=== PATIENT | male | born 1970 | race Caucasian/White ===

== ENCOUNTER 2017-05-22 21:47 | Emergency (ER) | payer OTHER ==
[2017-05-22 21:52] VITALS: RESP 16; O2SAT 95
--- NOTE | 2017-05-22 22:00 | EDPHY ---
H & P Stated Complaint: L upper leg pain and swelling since tuesday Time Seen by Provider: 05/22/17 21:50 HPI/ROS: HPI CHIEF COMPLAINT: Left leg swelling and pain HISTORY OF PRESENT ILLNESS: Patient very pleasant 47-year-old male, is otherwise healthy without any significant medical history does have remote history of a DVT in his leg after he got hit in the leg with a puck. 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 He often gets aches and pains in his legs and bruising. Since Tuesday has been complaining of some upper inner thigh left leg discomfort. He 1st just blew it off is possibly an injury musculoskeletal nature from playing hockey however the pain is persisted. He noticed his left leg is a little bit more swollen than normal. He does state at times he has leg does get swollen. He denies any chest pain or shortness of breath. Denies pleuritic pain. Patient's main complaint is left upper thigh pain. Deep in his thigh. Past Medical History: No significant medical history remote history of DVT after leg trauma Past Surgical History: Denies surgical history Social History: Denies drugs alcohol tobacco Family History: Denies significant family history ROS REVIEW OF SYSTEMS: A comprehensive 10 point review of systems is otherwise negative aside from elements mentioned in the history of present illness. Exam Constitutional appears well nontoxic no acute distress, triage nursing summary reviewed, vital signs reviewed, awake/alert. Eyes normal conjunctivae and sclera, EOMI, PERRLA. HENT normal inspection, atraumatic, moist mucus membranes, no epistaxis, neck supple/ no meningismus, no raccoon eyes. Respiratory clear to auscultation bilaterally, normal breath sounds, no respiratory distress, no wheezing. Cardiovascular rate normal, regular rhythm, no murmur, no edema, distal pulses normal. Gastrointestinal soft, non-tender, no rebound, no guarding, normal bowel sounds, no distension, no pulsatile mass. Genitourinary no CVA tenderness. Musculoskeletal left lower extremity: Trace swelling 1+, I do not appreciate a significant mass on exam or significant trauma. There is ecchymosis throughout his lower extremities bilaterally. He states from ice hockey. Distally neurovascular intact good pulse. Good cap refill. no midline vertebral tenderness, full range of motion, no calf swelling, no tenderness of extremities , no meningismus, good pulses, neurovascularly intact. Skin pink, warm, & dry, no rash, skin atraumatic. Neurologic awake, alert and oriented x 3, AAOx3, moves all 4 extremities equally, motor intact, sensory intact, CN II-XII intact, normal cerebellar, normal vision, normal speech. Psychiatric normal mood/affect. Heme/Lymph/Immune no lymphadenopathy. Differential Diagnosis: Includes but is not limited to in a particular order musculoskeletal injury, groin pull, DVT Medical Decision Making: Plan for this patient ultrasound Doppler of the left lower extremity rule out DVT. Re-evaluation: Ultrasound of the left lower extremity shows DVT. DVT present from the femoral vein to the popliteal vein. Does not go below the knee. 2310: Had a lengthy discussion with the patient about treatment options for an isolated left leg DVT. He has no chest pain or shortness of breath. Vital signs are stable. No hypoxia. No fever. His pain is very tolerable. We discussed treatment options in terms of warfarin or another novel agent like Xarelto the patient would prefer to be started on Xarelto so that he does not have to have INR checks. He does understand that Coumadin is easy to reverse in the setting of trauma bleeding. He understands Xarelto as much harder to reverse and there is not a definitive treatment for reversal at this time. Patient understands the risk of taking Xarelto. He understands that he would like to take this medications that have Coumadin. Additionally the patient understands he needs to follow up with his primary care doctor this week. Will be started on Xarelto 1st dose given in the emergency room 15 mg. Prescription given for 15 mg p.o. Twice daily x3 weeks. And then will need further Xarelto in conjunction with his primary care doctor. He understands return precautions he understands he has chest pain, shortness of breath, hemoptysis, pleuritic pain, not feeling well or shortness of breath or worsening leg swelling or leg pain he should return emergency room. 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 I recommend that he does not play ice hockey why he has a large clot his left leg, additionally recommend he does not play ice hockey while on Xarelto. Source: Patient - Personal History Current Tetanus/Diphtheria Vaccine: Yes - Medical/Surgical History Hx Asthma: No Hx Chronic Respiratory Disease: No Hx Diabetes: No Hx Cardiac Disease: No Hx Renal Disease: No Hx Cirrhosis: No Hx Alcoholism: No Hx HIV/AIDS: No Hx Splenectomy or Spleen Trauma: No Other PMH: denies - Social History Smoking Status: Never smoked Constitutional: Initial Vital Signs Temperature (C) 37.0 C 05/22/17 21:49 Heart Rate 74 05/22/17 21:49 Respiratory Rate 16 05/22/17 21:49 Blood Pressure 164/102 H 05/22/17 21:49 O2 Sat (%) 95 05/22/17 21:49 O2 Delivery Mode Room Air Allergies/Adverse Reactions: No Known Allergies Allergy (Unverified 05/22/17 21:52) Home Medications: Medication Instructions Recorded Rivaroxaban [Xarelto 15mg (*)] 15 mg PO BID #42 tab 05/22/17 Medical Decision Making - Diagnostics Imaging Results: Imaging Impressions Extremity Venous Study 05/22/17 22:08 Impression: 1. Evidence of deep venous thrombus involving the left femoral vein through the popliteal vein. Findings discussed with Maykel Marte MD at 23:02 hour, 05/22/2017. Departure - Departure Disposition: Home, Routine, Self-Care Clinical Impression: DVT (deep venous thrombosis) Qualifiers: DVT location: lower extremity Affected thrombotic vein of extremity: unspecified vein of extremity Chronicity: acute Laterality: left Qualified Code( s): I82.402 - Acute embolism and thrombosis of unspecified deep veins of left lower extremity Condition: Good Additional Instructions: 1. You have a DVT in her left leg. 2. Follow up with her primary care doctor. Please see them this week. 3. Ultrasound report provided to you. 4. Return to the emergency room if you have worsening symptoms questions or concerns. This includes chest pain, shortness of breath, coughing up blood, pain in your chest, or worsening leg pain and swelling. 5. Xarelto as prescribed. 6. No vigorous activity no ice hockey while on Xarelto and have a clot in your eg. Referrals: Minoo Chandler MD [Primary Care Provider] - As per Instructions Prescriptions: Rivaroxaban [Xarelto 15mg (*)] 15 mg PO BID #42 tab
[2017-05-22] MEDS ORDERED: RIVAROXABAN 15 MG TAB PO ONE (23:10)
[2017-05-23 00:07] VITALS: BP 145/85; PULSE 72; TEMP 98.1
== END 2017-05-22 23:30 | disposition home or self-care (01) ==
DX: I82.402 Acute embolism and thrombosis of unspecified deep veins of left lower extremity (principal); Z79.01 Long term (current) use of anticoagulants